=== PATIENT | male | born 1985 | race Hispanic/Latino ===

== ENCOUNTER 2019-02-26 08:20 | Emergency (ER) | payer OTHER ==
[2019-02-26] MEDS ORDERED: METOCLOPRAMIDE 10 MG/2mL INJ ONE (08:56)
[2019-02-26] MEDS ORDERED: NA CHLORIDE 0.9% 1,000 ML ONE (08:56)
[2019-02-26] MEDS ORDERED: KETOROLAC 30 MG/ML INJ ONE (08:56)
[2019-02-26] MEDS ORDERED: DIPHENHYDRAMINE 50 MG/ML VIAL ONE (08:56)
--- NOTE | 2019-02-26 09:19 | RAD REPORT ---
EXAM DESCRIPTION: CT - Head Brain Wo Cont - 02/26/2019 9:06 am CLINICAL HISTORY: HEADACHE Headache, drowsiness COMPARISON: No comparisons TECHNIQUE: All CT scans are performed using dose optimization technique as appropriate and may inclu de automated exposure control or mA/KV adjustment according to patient size. FINDINGS: No intracranial hemorrhage, hydrocephalus or extra-axial fluid collection.No areas of brai n edema or evidence of midline shift. The paranasal sinuses and mastoids are clear. The calvarium is intact. IMPRESSION: No acute intracranial abnormality.
--- NOTE | 2019-02-26 10:00 | ER ---
Nurse's Notes [facility] Name: Corbin Sanon Age: 33 yrs Sex: Male : 1985 Arrival Date: 02/26/2019 Time: 08:27 Bed 17 Private MD: None, None Diagnosis: Headache Presentation: 02/26 08:39 Presenting complaint: Patient states: headache that began yesterday. Denies nausea, ss vomiting. Is unable to return to work. Transition of care: patient was not received from another setting of care. Onset of symptoms was February 25, 2019. Risk Assessment: Do you want to hurt yourself or someone else? Patient reports no desire to harm self or others. Initial Sepsis Screen: Does the patient meet any 2 criteria? No. Patient's initial sepsis screen is negative. Does the patient have a suspected source of infection? No. Patient's initial sepsis screen is negative. Care prior to arrival: None. 08:39 Acuity: MEÑO 4 ss 08:39 Method Of Arrival: Ambulatory ss Triage Assessment: 09:06 Pain: Also complains of. ca1 Historical: - Allergies: 08:40 No Known Allergies; ss - Home Meds: 08:40 None [Active]; ss - PMHx: 08:40 None; ss - PSHx: 08:40 None; ss - Immunization history:: Adult Immunizations up to date. - Social history:: Smoking status: Patient/guardian denies using tobacco. - Ebola Screening: : Patient denies exposure to infectious person Patient denies travel to an Ebola-affected area in the 21 days before illness onset. Screenin:03 Abuse screen: Denies threats or abuse. Denies injuries from another. Nutritional ca1 screening: No deficits noted. Tuberculosis screening: No symptoms or risk factors identified. Fall Risk IV access (20 points). Assessment: 09:03 General: Appears in no apparent distress. comfortable, Behavior is calm, cooperative, ca1 appropriate for age. Pain: Complains of pain in face and scalp Pain currently is 8 out of 10 on a pain scale. Pain began 1 day ago. Neuro: Level of Consciousness is awake, alert, obeys commands, Oriented to person, place, time, situation, Appropriate for age. Cardiovascular: Heart tones S1 S2 present Capillary refill < 3 seconds Patient's skin is warm and dry. Respiratory: Airway is patent Respiratory effort is even, unlabored, Respiratory pattern is regular, symmetrical, Breath sounds are clear bilaterally. GI: Abdomen is flat, non-distended, Bowel sounds present X 4 quads. Abd is soft and non tender X 4 quads. Patient currently denies nausea. : No deficits noted. No signs and/or symptoms were reported regarding the genitourinary system. EENT: No deficits noted. No signs and/or symptoms were reported regarding the EENT system. Derm: Skin is intact, is healthy with good turgor, Skin is pink, warm \T\ dry. Musculoskeletal: Circulation, motion, and sensation intact. Capillary refill < 3 seconds, Range of motion: intact in all extremities. 10:01 Reassessment: Patient appears in no apparent distress at this time. Patient is alert, ca1 oriented x 3, equal unlabored respirations, skin warm/dry/pink. Patient states feeling better. Vital Signs: 08:40 BP 139 / 93; Pulse 62; Resp 15; Pulse Ox 99% on R/A; Weight 84.82 kg; Height 5 ft. 9 ss in. (175.26 cm); Pain 8/10; 09:32 BP 120 / 76; Pulse 66; Resp 16 S; Pulse Ox 100% on R/A; Pain 5/10; ca1 10:01 BP 113 / 75; Pulse 71; Resp 16 S; Pulse Ox 100% on R/A; Pain 0/10; ca1 08:40 Body Mass Index 27.61 (84.82 kg, 175.26 cm) ED Course: 08:27 Patient arrived in ED. mr 08:27 None, None is Private Physician. mr 08:39 Triage completed. ss 08:40 Arm band placed on left wrist. ss 08:41 Samuel Domingo NP is PHCP. pm1 08:41 Sid Dudley MD is Attending Physician. pm1 08:50 Inserted saline lock: 20 gauge in right antecubital area, using aseptic technique. dh3 08:52 Yodit Quinones, RN is Primary Nurse. ca1 09:03 Patient has correct armband on for positive identification. Bed in low position. Call ca1 light in reach. Side rails up X 1. Pulse ox on. NIBP on. Warm blanket given. 09:03 No provider procedures requiring assistance completed. ca1 09:05 CT completed. Patient tolerated procedure well. Patient moved to CT via wheelchair. sw Patient moved back from CT. 09:07 CT Head Brain wo Cont In Process Unspecified. EDMS 10:12 IV discontinued, intact, bleeding controlled, No redness/swelling at site. Pressure ca1 dressing applied. Administered Medications: 08:55 Drug: NS 0.9% 1000 ml Route: IV; Rate: 1000 ml; Site: right antecubital; ca1 10:01 Follow up: Response: No adverse reaction; IV Status: Completed infusion ca1 08:55 Drug: Reglan 10 mg Route: IVP; Site: right antecubital; ca1 10:01 Follow up: Response: No adverse reaction; Pain is decreased ca1 08:57 Drug: Benadryl 25 mg Route: IVP; Site: right antecubital; ca1 10:01 Follow up: Response: No adverse reaction; Pain is decreased ca1 09:00 Drug: TORadol - Ketorolac 15 mg Route: IVP; Site: right antecubital; ca1 10:01 Follow up: Response: No adverse reaction; Pain is decreased ca1 Outcome: 09:59 Discharge ordered by MD. pm1 10:12 Discharged to home ambulatory. ca1 10:12 Condition: stable 10:12 Discharge instructions given to patient, Instructed on discharge instructions, follow up and referral plans. medication usage, Demonstrated understanding of instructions, follow-up care, medications, Prescriptions given X 1. 10:13 Patient left the ED. ca1 Signatures: Dispatcher [employer] EDNC CalKaylyn mr DeMaricruz RN RN ss Warren, Shannon Samuel Domingo, DIA ENDS DOWN CHECKER pm1 Shital Be formerly [facility] Yodit Quinones RN RN ca1 Corrections: (The following items were deleted from the chart) 10:01 10:01 Reassessment: Patient appears in no apparent distress at this time. Patient ca1 and/or family updated on plan of care and expected duration. Pain level reassessed. Patient is alert, oriented x 3, equal unlabored respirations, skin warm/dry/pink. Patient states feeling better. ca1 10:04 10:01 BP 113 / 75; Pulse 71bpm; Resp 16bpm; Spontaneous; Pulse Ox 100% RA; ca1 ca1
--- NOTE | 2019-02-26 10:00 | EDPHYS ---
Physician Documentation [facility] Name: Corbin Sanon Age: 33 yrs Sex: Male : 1985 Arrival Date: 02/26/2019 Time: 08:27 Bed 17 Private MD: None, None ED Physician Sid Dudley HPI: 02/26 08:59 This 33 yrs old Male presents to ER via Ambulatory with complaints of Headache.pm1 08:59 The patient complains of pain to the forehead. The patient describes the headache as pm1 aching. Onset: The symptoms/episode began/occurred 2 day(s) ago. Associated signs and symptoms: The patient has no apparent associated signs or symptoms, Pertinent negatives: dizziness, fever, neck stiffness, paresthesias, vomiting, weakness. Severity of symptoms: in the emergency department the pain is unchanged. Headache History: Denies prior headaches. The symptoms are alleviated by nothing. the symptoms are aggravated by nothing. The patient has not experienced similar symptoms in the past. The patient has not recently seen a physician. Historical: - Allergies: 08:40 No Known Allergies; ss - Home Meds: 08:40 None [Active]; ss - PMHx: 08:40 None; ss - PSHx: 08:40 None; ss - Immunization history:: Adult Immunizations up to date. - Social history:: Smoking status: Patient/guardian denies using tobacco. - Ebola Screening: : Patient denies exposure to infectious person Patient denies travel to an Ebola-affected area in the 21 days before illness onset. ROS: 08:59 Constitutional: Negative for fever, chills, and weight loss, Eyes: Negative for injury, pm1 pain, redness, and discharge, ENT: Negative for injury, pain, and discharge, Neck: Negative for injury, pain, and swelling, Cardiovascular: Negative for chest pain, palpitations, and edema, Respiratory: Negative for shortness of breath, cough, wheezing, and pleuritic chest pain, Abdomen/GI: Negative for abdominal pain, nausea, vomiting, diarrhea, and constipation, Back: Negative for injury and pain, MS/Extremity: Negative for injury and deformity, Skin: Negative for injury, rash, and discoloration. 08:59 Neuro: Positive for headache, Negative for altered mental status, dizziness, numbness, tingling, weakness. Exam: 08:59 Constitutional: This is a well developed, well nourished patient who is awake, alert, pm1 and in no acute distress. Head/Face: Normocephalic, atraumatic. Eyes: Pupils equal round and reactive to light, extra-ocular motions intact. Lids and lashes normal. Conjunctiva and sclera are non-icteric and not injected. Cornea within normal limits. Periorbital areas with no swelling, redness, or edema. ENT: Nares patent. No nasal discharge, no septal abnormalities noted. Tympanic membranes are normal and external auditory canals are clear. Oropharynx with no redness, swelling, or masses, exudates, or evidence of obstruction, uvula midline. Mucous membranes moist. Neck: Trachea midline, no thyromegaly or masses palpated, and no cervical lymphadenopathy. Supple, full range of motion without nuchal rigidity, or vertebral point tenderness. No Meningismus. Chest/axilla: Normal chest wall appearance and motion. Nontender with no deformity. No lesions are appreciated. Cardiovascular: Regular rate and rhythm with a normal S1 and S2. No gallops, murmurs, or rubs. Normal PMI, no JVD. No pulse deficits. Respiratory: Lungs have equal breath sounds bilaterally, clear to auscultation and percussion. No rales, rhonchi or wheezes noted. No increased work of breathing, no retractions or nasal flaring. Abdomen/GI: Soft, non-tender, with normal bowel sounds. No distension or tympany. No guarding or rebound. No evidence of tenderness throughout. Back: No spinal tenderness. No costovertebral tenderness. Full range of motion. Skin: Warm, dry with normal turgor. Normal color with no rashes, no lesions, and no evidence of cellulitis. MS/ Extremity: Pulses equal, no cyanosis. Neurovascular intact. Full, normal range of motion. 08:59 Neuro: Orientation: is normal, Cranial nerves: CN II- XII are normal as tested, Cerebellar function: normal finger to nose testing, Motor: is normal, moves all fours, strength is normal, strength is 5/5 in all extremities. Vital Signs: 08:40 BP 139 / 93; Pulse 62; Resp 15; Pulse Ox 99% on R/A; Weight 84.82 kg; Height 5 ft. 9 ss in. (175.26 cm); Pain 8/10; 09:32 BP 120 / 76; Pulse 66; Resp 16 S; Pulse Ox 100% on R/A; Pain 5/10; ca1 10:01 BP 113 / 75; Pulse 71; Resp 16 S; Pulse Ox 100% on R/A; Pain 0/10; ca1 08:40 Body Mass Index 27.61 (84.82 kg, 175.26 cm) ss MDM: 08:41 Patient medically screened. pm1 09:58 Data reviewed: vital signs. Data interpreted: Pulse oximetry: on room air is 100 %. pm1 Interpretation: normal. Counseling: I had a detailed discussion with the patient and/or guardian regarding: the historical points, exam findings, and any diagnostic results supporting the discharge/admit diagnosis, radiology results, the need for outpatient follow up, to return to the emergency department if symptoms worsen or persist or if there are any questions or concerns that arise at home. 02/26 08:52 Order name: CT Head Brain wo Cont; Complete Time: 09:24 pm1 Administered Medications: 08:55 Drug: NS 0.9% 1000 ml Route: IV; Rate: 1000 ml; Site: right antecubital; ca1 10:01 Follow up: Response: No adverse reaction; IV Status: Completed infusion ca1 08:55 Drug: Reglan 10 mg Route: IVP; Site: right antecubital; ca1 10:01 Follow up: Response: No adverse reaction; Pain is decreased ca1 08:57 Drug: Benadryl 25 mg Route: IVP; Site: right antecubital; ca1 10:01 Follow up: Response: No adverse reaction; Pain is decreased ca1 09:00 Drug: TORadol - Ketorolac 15 mg Route: IVP; Site: right antecubital; ca1 10:01 Follow up: Response: No adverse reaction; Pain is decreased ca1 Disposition: 11:07 Co-signature as Attending Physician, Sid Dudley MD. rn Disposition: 02/26/19 09:59 Discharged to Home. Impression: Headache. - Condition is Stable. - Discharge Instructions: General Headache Without Cause. - Prescriptions for Fiorinal 50- 325-40 mg Oral Capsule - take 1 capsule by ORAL route every 4 hours As needed - not to exceed 6 capsules per day; 20 capsule. - Medication Reconciliation Form, Thank You Letter, Antibiotic Education, Prescription Opioid Use, Work release form form. - Follow up: Emergency Department; When: As needed; Reason: Worsening of condition. Follow up: Private Physician; When: 2 - 3 days; Reason: Recheck today's complaints, Continuance of care, Re-evaluation by your physician. - Problem is new. - Symptoms have improved. Signatures: Dispatcher [employer] EDMS Sid Dudley MD MD rn Smirch, Shelby, RN RN ss Marinas, Patrick, NP HOME CARE ASSISTANT pm1 Yodit Quinones RN RN ca1 Corrections: (The following items were deleted from the chart) 10:13 09:59 02/26/2019 09:59 Discharged to Home. Impression: Headache. Condition is Stable. ca1 Forms are Medication Reconciliation Form, Thank You Letter, Antibiotic Education, Prescription Opioid Use. Follow up: Emergency Department; When: As needed; Reason: Worsening of condition. Follow up: Private Physician; When: 2 - 3 days; Reason: Recheck today's complaints, Continuance of care, Re-evaluation by your physician. Problem is new. Symptoms have improved. pm1
[2019-02-26 10:19] VITALS: O2SAT 100
[2019-02-26 10:21] VITALS: BP 113/75
== END 2019-02-26 10:13 | disposition home or self-care (01) ==
LOC: ER 08:20
DX: R51 Headache (principal)
CPT/HCPCS: 96361; 70450; 96375; 96374; 99284; J2765; J1200; J7030